=== PATIENT | female | born 1945 | race Caucasian/White ===

== ENCOUNTER → 2018-09-02 | Day surgery (SDC) | payer MEDICARE, BC ==
--- NOTE | 2018-08-29 13:25 | Diagnostic Imaging Report ---
EXAM: CHEST 2 VIEWS, PA and lateral DATE: 08/29/2018 Time stamp on exam: 11:21 AM INDICATION: Preoperative COMPARISON: None FINDINGS: LINES/TUBES: None LUNGS: No consolidations or edema. PLEURA: No effusions or pneumothorax. HEART AND MEDIASTINUM: Normal size and contour. BONES AND SOFT TISSUES: No acute findings. Mild degenerative changes of the spine. IMPRESSION: No acute thoracic abnormality. Signed by: Dr. Melchor Isabel DO on 08/29/2018 1:22 PM
--- NOTE | 2018-09-01 01:26 | Pre Op History & Physical ---
DATE OF SURGERY: September 02, 2018. CHIEF COMPLAINT: Left sensorineural hearing loss, which is a sudden onset. HISTORY OF PRESENT ILLNESS: This 73-year-old female has a 6 months history of roaring in the left ear. The patient has otalgia. She also complains of unsteadiness. The patient found that the hearing loss is worst in the high pitch. She has no surgery to the ear. She has no treatment prior to this. Her family doctor has been giving her medication for her unsteadiness. Audiogram that was done showed the patient has mild to moderate high-frequency sensorineural hearing loss in the right ear with moderate to profound sensorineural hearing loss in the left ear. Speech discrimination is 96% on the right side and 36% on the left. An MRI of the skull base that was done showed the patient has unremarkable IAC. She has mild type 1 deep perivascular small-vessel white matter ischemia adjacent to atrium and on both lateral ventricles. REVIEW OF SYSTEMS: Showed no recent cardiovascular, respiratory, or GI problem. PAST MEDICAL HISTORY: The patient has hypertension and cancer of the thyroid treated with surgery and I-131 therapy. PAST SURGICAL HISTORY: The patient has previous hysterectomy and thyroidectomy. ALLERGIES: SHE HAS NO KNOWN ALLERGY TO MEDICATION. MEDICATIONS: She is on Estradiol, levothyroxine, losartan, Bystolic, lisinopril, lorazepam, atorvastatin, and meclizine. SOCIAL HISTORY: Nonsmoker, nondrinker. FAMILY HISTORY: Noncontributory. PHYSICAL EXAMINATION: VITAL SIGNS: On examination, the patient's vital signs were within normal limits. She was seen with her . HEENT: Ear exam showed normal tympanic membrane bilaterally. Nasal exam show no obvious abnormality. Oropharynx and oral cavity show 2+ tonsils bilaterally with Mallampati level 2. NECK: Show no lymph nodes or thyroid palpable. CHEST: Showed good air entry bilaterally. CARDIOVASCULAR: Show S1, S2. No murmur noted. SERVICES ENGINEER: Showed cranial nerves II though XII were within normal limits. ASSESSMENT AND PLAN: Ms. Byrd has left sudden sensorineural hearing loss. Autoimmune hearing loss cannot be ruled out on the left side. The suggested treatment is myringotomy and tubes on the left ear and EUA of the right with Decadron instillation of the left ear and other necessary procedure. Complication of procedure includes but not limited to bleeding, infection, TM perforation, persistent drainage from the ear, persistent hearing loss, and persistence of unsteadiness. Alternatives will be continue observation. Myringotomy and tubes in the office setting with instillation of Decadron. The patient and her have elected to undergo surgical procedure. MD CHATO Prater/MICHAEL /[id number] cc: Saad Charles
[~2018-09-02] MED LIST: ATORVASTATIN CA10 MG PO; DEXAMETHASONE PHOS 24 MG/ML 10ML VIAL IV ONE; ESTRADIOL1 MG PO; FENTANYL CITRATE/PF 100MCG/2 ML INJ ONE; HYDROCHLOROTHIA25 MG PO; LEVOTHYROXINE88 MCG PO; LIDOCAINE HCL 2% LOCAL INJ 5 ML SDV VIAL INJ ONE; LISINOPRIL10 MG PO; ONDANSETRON HCL INJ 2MG/ML 2ML 2 MG/ML VIAL ONE; PROPOFOL IV EMULSION 10 MG/ML 20 ML VIAL ONE; SEVOFLURANE INHAL SOLN 250 ML PEN BTL ONE
--- OUTSIDE RECORDS SUMMARY | 2018-09-02 05:24 | XMS REPORT | Clinical Summary ---
Author Author [facility] Address Unknown Phone Unavailable Care Team Providers Care Pre School Teacher Name Role Phone Saad Charles MD PCP Allergies Not on File Medications Not on file Active Problems Not on file Social History Date Tobacco Use Types Packs/Day Years Used Never Assessed Sex Assigned at Date Recorded Not on file Industry Job Start Date Occupation Not on file Not on file Not on file Travel End Travel History Travel Start No recent travel history available. Last Filed Vital Signs Not on file Plan of Treatment Health Maintenance Due Date Last Done Comments COLON CANCER SCREENING 10/18/1993 SHINGLES VACCINES (#1) 10/18/1993 65+ PNEUMOCOCCAL VACCINE 10/18/2008 (1 of 2 - PCV13) PNEUMOCOCCAL 10/18/2008 POLYSACCHARIDE VACCINE AGE 65 AND OVER INFLUENZA VACCINE 12/04/2018 BREAST CANCER SCREENING 12/26/2018 12/26/2016, 12/28/2015, 11/19/2014, Additional history exists Results Not on fileafter 09/01/2017 Insurance Payer Benefit Subscriber ID Type Phone Address Plan / Group MEDICARE MEDICARE xxxxxxxxxx Medicare [place], [place] PART A AND B BCBS BCBS xxxxxxxxxxxx Indemnity PAR/TRAD PLAN Advance Directives Patient has advance care planning documents on file. For more information, merlene pretty contact: Maldonado Ocampo [address] [place] [address]
--- OUTSIDE RECORDS SUMMARY | 2018-09-02 05:25 | XMS REPORT ---
[facility] Address Unknown Phone Unavailable Care Team Providers Care Joint Sealer Name Role Phone Ruslan SIMPSON Unavailable Unavailable Problems This patient has no known problems. Allergies, Adverse Reactions, Alerts This patient has no known allergies or adverse reactions. Medications This patient has no known medications. Results Test Description Test Time Test Comments Text Results Atomic Results Result Comments CHEST 2 VIEWS 2018-08-29 13:21:00 [place] [address] Patient Name: SUBHA COY MR #: [id number] : 1945 Age/Sex: 72/F Req #: [id number] Adm Physician: Ordered by: KIMBERLEY SIMPSON MD Report #: [id number] Location: OR Room/Bed: Procedure: [id number] DX/CHEST 2 VIEWS Exam Date: 08/29/18 Exam Time: 1120 REPORT STATUS: Signed EXAM: CHEST 2 VIEWS, PA and lateral DATE: 08/29/2018 Time stamp on exam: 11:21 AM INDICATION: Preoperative COMPARISON: None FINDINGS: LINES/TUBES: None LUNGS: No consolidations or edema. PLEURA: No effusions or pneumothorax. HEART AND MEDIASTINUM: Normal size and contour. BONES AND SOFT TISSUES: No acute findings. Mild degenerative changes of the spine. IMPRESSION: No acute thoracic abnormality. Signed by: Dr. Kenzie Isabel DO on 08/29/2018 1:22 PM Dictated By: KENZIE ISABEL DO 1322 Transcribed By: FAUSTO on 08/29/18 1322 COPY TO: KIMBERLEY SIMPSON MD
[2018-09-02 09:00] VITALS: BP 115/65
--- NOTE | 2018-09-02 15:55 | Operative Report ---
DATE OF PROCEDURE: 09/02/2018 SURGEON: Garrett Sales MD CHIEF COMPLAINT: Left sudden sensorineural hearing loss. POSTOPERATIVE DIAGNOSIS: Left sudden sensorineural hearing loss. OPERATIVE PROCEDURE: Examination under anesthesia in the right ear and left myringotomy and tube with Decadron instillation in the left. ANESTHESIA: Anesthesiology group. INDICATION: This 72-year-old female has a six-month history of hearing loss on the left ear with unsteadiness. The patient has been worked up. She initially was treated by her primary care physician with Antivert with no improvement of the condition. The patient has sensorineural hearing loss that has gotten worse. On an audiogram that was done showed the patient has [id number] sensorineural hearing loss in the left ear with a speech discrimination on the left side of about 36% and 100% on the right. The patient has a mild high-frequency sensorineural hearing loss on the right ear. An MRI of the skull base was negative for any lesion in the IAC. It was decided that myringotomy and tube and Decadron installation in the left and examination under anesthesia on the right and other necessary procedure will be beneficial for her. DESCRIPTION OF PROCEDURE: The patient was taken to the operating room and put under general anesthesia. Right ear was examined. Ear canal was debrided. No abnormality was noted. The left ear was examined. Ear canal was debrided and myringotomy was done in anterior inferior quadrant. 1 mL of Decadron 24 mg/mL was instilled into the middle ear through the PE tube. The patient tolerated the above procedure well with minimal blood loss. The patient was able to be transferred to recovery room in stable condition. Garrett Sales MD DKH/MODL /[id number]
== END | disposition home or self-care (01) ==
LOC: OR 05:22
PROVIDERS: ATTEND Otolaryngology Otolaryngology/Facial Plastic Surgery
DX: H90.3 Sensorineural hearing loss, bilateral (principal); H92.09 Otalgia, unspecified ear; I10 Essential (primary) hypertension; E78.5 Hyperlipidemia, unspecified; K21.9 Gastro-esophageal reflux disease without esophagitis; Z01.810 Encounter for preprocedural cardiovascular examination; Z01.818 Encounter for other preprocedural examination; Z85.850 Personal history of malignant neoplasm of thyroid; Z92.3 Personal history of irradiation
CPT/HCPCS: 69399; 69436; 71046; 93005; J2001; J2405; J2704